=== PATIENT | male | born 1990 | race Caucasian/White ===

== ENCOUNTER 2020-10-11 13:51 | Emergency (ER) | payer OTHER ==
[~2020-10-11] VITALS: Ht 177.8 cm; Wt 72.6 kg
[2020-10-11] MEDS ORDERED: BENADRYL25 MG PO (14:07)
[2020-10-11] MEDS ORDERED: Pepcid20 MG PO (14:07)
== END 2020-10-11 14:16 | disposition home or self-care (01) ==
LOC: ER 13:51
DX: L23.7 Allergic contact dermatitis due to plants, except food (principal); Z79.899 Other long term (current) drug therapy
CPT/HCPCS: 96372; 99282; A9270; J1100